=== PATIENT | male | born 1985 | race Caucasian/White ===

== ENCOUNTER 2017-06-06 18:40 | Emergency (ER) | payer BC ==
[~2017-06-06] VITALS: Ht 177.8 cm; Wt 72.6 kg
--- NOTE | 2017-06-06 20:00 | NUR ---
Removed 5 azalia, patient tolerated procedure well, no bleeding noted.
--- NOTE | 2017-06-06 20:25 | NUR ---
Patient discharged to home in stable conditon. Written and verbal after care instructions given. Patient verbalizes understanding of instructions. Pt ambulated out of ER with steady gait, VSS, all belongings taken.
[2017-06-06 20:26] VITALS: BP 140/85
== END 2017-06-06 20:27 | disposition home or self-care (01) ==
LOC: ER 18:42
DX: Z48.02 Encounter for removal of sutures (principal); R05 Cough
CPT/HCPCS: 71045; A4663